=== PATIENT | male | born 1995 | race Caucasian/White ===

== ENCOUNTER 2018-01-11 18:58 | Emergency (ER) | payer BC ==
[~2018-01-11] VITALS: Ht 172.7 cm; Wt 72.6 kg
== END 2018-01-11 21:23 | disposition home or self-care (01) ==
LOC: ED 18:58
DX: S02.2XXA Fracture of nasal bones, initial encounter for closed fracture (principal); Z88.0 Allergy status to penicillin; W17.89XA Other fall from one level to another, initial encounter
CPT/HCPCS: 70160; 99283